=== PATIENT | male | born 1980 | race Caucasian/White ===

== ENCOUNTER 2018-09-03 13:07 | Emergency (ER) | payer OTHER ==
[~2018-09-03] VITALS: Ht 175.3 cm; Wt 67.9 kg
[2018-09-03 13:14] VITALS: Ht 175.3 cm; Wt 67.9 kg
[2018-09-03] MEDS ORDERED: KETOROLAC 30 MG INJ IV STA (13:56)
[2018-09-03] MEDS ORDERED: SOD CHLORIDE 0.9% 1,000 ML IV STA (13:56)
--- NOTE | 2018-09-03 14:10 | ERD ---
ER Documentation Chief Complaint Chief Complaint sob and palpitations x 3 days, had cold a week ago HPI This is a 38-year-old male that presents to the emergency department complaining of generalized myalgias, sore throat, productive cough, palpitations and shortness of breath for the past 2 weeks. He states his symptoms have not improved. He has taken NyQuil with no improvement. He had no recent sick contacts. He denies any recent travel. He states the shortness of breath is at worst and not with exertion. He smokes marijuana but denies tobacco use. He has no recent travel or prolonged immobilization. He denies any swelling of his lower extremities and no calf tenderness. He denies any chest pressure that radiates to the neck arm back or jaw. ROS All systems reviewed and are negative except as per history of present illness. Medications Home Meds No Active Prescriptions or Reported Meds Allergies Allergies: Coded Allergies: No Known Allergy (Unverified , 09/03/18) PMhx/Soc Medical and Surgical Hx: pt denies Medical Hx, pt denies Surgical Hx Hx Alcohol Use: No Hx Substance Use: No Hx Tobacco Use: No Smoking Status: Never smoker Physical Exam Vitals Vital Signs Date Temp Pulse Resp B/P (MAP) Pulse Ox O2 O2 Flow FiO2 Time Delivery Rate 09/03/18 98.9 72 18 126/86 99 Room Air 13:51 (99) 09/03/18 98.9 85 18 136/79 99 13:14 (98) Physical Exam Constitutional:Well-developed. Well-nourished. HEENT:Normocephalic. Atraumatic.Pupils were equal round reactive to light. Dry mucous membranes.. Erythema both tonsils with no tonsillar exudates. Neck: No nuchal rigidity. No lymphadenopathy. No posterior cervical spine tenderness or step-offs. Respiratory: Not using accessory muscles of respiration.Lungs were clear to auscultation bilaterally. No rhonchi. No rales. No wheezing. Cardiovascular: Regular rate regular rhythm.No murmurs. No rubs were appreciated.S1, S2 normal. Distal pulses are palpable 2+ bilaterally. GI: Abdomen was soft. Nontender. Non Distended. No pulsatile abdominal masses or bruits. No rebound. No guarding. Bowel sounds were present and normal. Muscle skeletal: Full range of motion of both the upper and lower extremities bilaterally.Normal muscle tone.No assymetrical calf tenderness or swelling. Skin: No petechia, no purpura. No lesions on the palms or the soles of the feet. No maculopapular rash. NEURO: Patient was alert, awake, orientated x3.No facial droop. Gait observed and normal with no ataxia.Speech had regular rate and rhythm. No focal neurological deficits. Results 24 hrs Current Medications Medications Dose Sig/Aroldo Start Time Status Last (Trade) Ordered Route PRN Stop Time Admin Dose Reason Admin Sodium 1,000 ml @ Q1H STAT 09/03/18 09/03/18 Chloride 1,000 mls/hr IV 13:56 09/03/18 14:05 14:55 Ketorolac 30 mg ONCE STAT 09/03/18 DC 09/03/18 Tromethamine IV 13:56 09/03/18 14:05 (Toradol) 13:58 Procedures/MDM This is a 38-year-old male that presented to the emergency department with flulike illness. The patient was placed on a air sampling and monitoring continuous pulse oximetry and IV access was established given that the patient was showing signs of clinical dehydration. He was given a liter bolus of normal saline and IV Toradol. The patient no severe loculate abnormalities. The patient's influenza swab was negative. I obtained a 12-lead EKG tracing given that the patient was complaining of palpitations. 12 Lead EKG tracing ordered and reviewed by myself showed: Normal sinus rhythm of 75 bpm and no arrhythmia. VT interval normal. QRS duration normal. No ST segment elevation No ST segment depression. No changes consistent with acute ischemia. I obtained a 1 view chest radiograph there is no evidence of infiltrates or pneumothorax. The patient did have mild new onset wheezing and was given a nebulizer treatment of albuterol and Atrovent. I do feel symptoms are likely result of acute bronchitis. Patient will be discharged home with azithromycin. I did not feel the patient was experiencing congestive heart failure or a pulmonary embolism as he has no risk factors or physical exam findings to suggest this is a cause of his symptoms. The patient was discharged home in fair condition. They were instructed to return to the emergency department at any time if there was any worsening of their condition. The patient stated they would follow up with their PCP in the next 24-48 hours to initiate a suitable medication regimen under the care of their PCP as well as to allow their PCP to monitor any drug reactions. The patient was discharged home with prescriptions after they gave informed consent to the new medication. They were also fully informed by myself on the adverse effects and adverse drug interactions in order to provide adequate safeguards to prevent possible adverse reactions to medications. Departure Diagnosis: Primary Impression: Acute bronchitis Bronchitis organism: unspecified organism Qualified Codes: J20.9 - Acute bronchitis, unspecified Condition: Fair ONELIA PUENTE MD Sep 03, 2018 14:10
[2018-09-03] MEDS ORDERED: ALBUTEROL 0.083% (NEB) 2.5 MG/3 ML AMP NEB STA (14:12)
[2018-09-03] MEDS ORDERED: IPRATROPIUM (NEB) 0.5 MG/2.5 ML AMP NEB STA (14:12)
[2018-09-03] MEDS ORDERED: IBUP-1542 PO (15:05)
[2018-09-03] MEDS ORDERED: AZIT250T PO (15:05)
[2018-09-03 16:32] VITALS: BP 130/81; PULSE 80; RESP 19
== END 2018-09-03 16:33 | disposition home or self-care (01) ==
LOC: E/R 13:07
DX: J20.9 Acute bronchitis, unspecified (principal)
CPT/HCPCS: 71045; 80053; 82150; 83690; 84484; 85025; 85610; 85730; 87400; 93005; 94664; 96374; J1885; J7030; Z7502; Z7610